=== PATIENT | male | born 1995 | race Caucasian/White ===

== ENCOUNTER 2022-10-13 21:06 | Emergency (ER) | payer OTHER, SELFPAY ==
[2022-10-13 21:16] VITALS: BP 138/74; PULSE 80; RESP 14; TEMP 36.9; O2SAT 96; BMI 24.9
--- NOTE | 2022-10-13 21:25 | ED_ITS ---
HPI - General Adult General Chief complaint: Wound/Laceration Stated complaint: BEE STING ON LIP Time Seen by Provider: 10/13/22 21:25 History of Present Illness HPI narrative: Presents to emergency department complaining of a bee sting. Patient states he was drinking some alcoholic beverage and immediately stung him to his left upper lip. He noticed a little bit of swelling to his lip that wasn't to make sure that he was fine. Incident happened 45 minutes prior to arrival. He states that by bees in the past and never had an ALLERGIC reaction. Cannot take anything at home. He denies any rashes, he denies any wheezing. He denies any tongue swelling, difficulty swallowing, or drooling. He denies any chest pain, shortness of breath. Related Data Allergies Allergy/AdvReac Type Severity Reaction Status Date / Time No Known Drug Allergies Allergy Verified 10/13/22 21:20 Review of Systems ROS Status of ROS 10 or more systems reviewed and unremarkable except as noted in history and below [facility] Social History Smoking status: Current every day smoker Exam Narrative Exam Narrative: Nurses notes and vital signs reviewed and patient is not hypoxic. General: Nontoxic, Well-appearing and in no apparent distress. Skin: Warm, dry, no pallor noted. No Rash Head: Normocephalic, atraumatic. Neck: Supple, non-tender. Eye: Pupils are equal, round and EOMI. No scleral icterus. Ears, Nose, Mouth, and Throat: no posterior oropharynx erythema or nasal mucosal hypertrophy, uvula is mid-line Oral mucosa is moist, Minimal left upper lip edema. No intraoral edema. No tongue elevation Cardiovascular: Regular Rate and Rhythm without murmur, gallop or rub. Respiratory: No accessory muscle use or respiratory distress. Lungs are clear to auscultation, no wheezing, rales or rhonchi Chest Wall: no tenderness Back: No midline thoracic or lumbar vertebral tenderness. No CVA tenderness Musculoskeletal: normal ROM, no calf or popliteal tenderness, no lower extremity edema/swelling GI: Abdomen is soft, non-distended. Normal bowel sounds. No masses appreciated. No tenderness to palpation. No rebound, guarding, or rigidity noted. Neurological: A&O x4. No cranial nerve dysfunction observed. No truncal ataxia. Moves all extremities. Sensation intact. Psychiatric: Cooperative and interactive. Normal mood and affect. Constitutional Vital Signs, click to edit/add: Last Vital Signs Temp 98.5 F 10/13/22 21:16 Pulse 68 10/13/22 22:32 Resp 16 10/13/22 22:32 BP 138/74 10/13/22 21:16 Pulse Ox 98 10/13/22 22:32 O2 Del Method Room Air 10/13/22 22:32 Course Vital Signs Vital signs: Vital Signs Temperature 98.5 F 10/13/22 21:16 Pulse Rate 80 10/13/22 21:16 Respiratory Rate 14 10/13/22 21:16 Blood Pressure 138/74 10/13/22 21:16 Pulse Oximetry 96 10/13/22 21:16 Oxygen Delivery Method Room Air 10/13/22 21:16 Temperature 98.5 F 10/13/22 21:16 Pulse Rate 68 10/13/22 22:32 Respiratory Rate 16 10/13/22 22:32 Blood Pressure 138/74 10/13/22 21:16 Pulse Oximetry 98 10/13/22 22:32 Oxygen Delivery Method Room Air 10/13/22 22:32 Medical Decision Making MDM Narrative Medical decision making narrative: Patient has no known history of ALLERGIES to bees. He is monitored until 10:36 PM without any problems. There were no other signs or symptoms of anaphylactics. Patient was given 50 g of Benadryl by mouth. Patient stable for outpatient follow-up and treatment. At this time the patient is without objective evidence of an acute process requiring hospitalization or inpatient management. The patient has remained hemodynamically stable. No additional indication for emergent studies at this time. I answered all questions. Discussed discharge instructions including standard anticipatory guidance and what should prompt a return to the emergency department, including if they get worse are not getting better or develops any new or concerning symptoms. I've given them specific time frame in which to follow-up, and who to follow-up with. The patient demonstrates understanding. Patient is nontoxic and stable for discharge with outpatient follow-up. This note was created with the assistance of a speech recognition program. Although the intention is to generate documents that actually reflects the content of the visit, no guarantees can be provided that every mistake has been identified and corrected by editing. Discharge Plan Discharge Chief Complaint: Wound/Laceration Clinical Impression: Bee sting Patient Disposition: Home, Self-Care Time of Disposition Decision: 22:19 Condition: Good Mode of Transportation: Private Vehicle Instructions: Insect Bite or Sting (ED) Stand Alone Forms: Portal Instructions Referrals: CARLOS EDUARDO MCQUEEN APRN [Physician] - 1 week Discharge Date/Time: 10/13/22 22:34
--- NOTE | 2022-10-13 21:25 | PC.NURSE ---
patient states approx 45mins ago he was sitting outside drinking and took a drink and it had a bee in it. the beed stung the inside of his upper lip to left side. patient states he is concerned because his lip is swollen. denies any difficulty breathing, shortness of breath, nausea, vomiting. able to clear secretions and speak without issue. no difficulty speaking. no tongue or throat swelling. patient reports he has been stung by bees in the past and has never experienced anaphylaxis or complications related to sting.
[2022-10-13] MEDS: DIPHENHYDRAMINE HCL 25 MG CAPSULE 50 MG PO (21:35)
[2022-10-13 21:48] VITALS: PULSE 78; RESP 16; O2SAT 97
[2022-10-13 22:16] VITALS: PULSE 69; RESP 16; O2SAT 96
[2022-10-13 22:32] VITALS: PULSE 68; RESP 16; O2SAT 98
== END 2022-10-13 22:34 | disposition home or self-care (01) ==
PROVIDERS: Emergency Provider Emergency Medicine
DX: T63.441A Toxic effect of venom of bees, accidental (unintentional), initial encounter (principal); F17.210 Nicotine dependence, cigarettes, uncomplicated
CPT/HCPCS: 99282

== ENCOUNTER 2023-01-19 13:10 | Emergency (ER) | payer SELFPAY ==
[2023-01-19 13:16] VITALS: BP 146/91; PULSE 83; RESP 18; TEMP 36.3; O2SAT 98; BMI 25.8
--- NOTE | 2023-01-19 13:39 | ED_ITS ---
HPI - Nausea/Vomiting/Diarrhea General Chief complaint: Nausea/Vomiting/Diarrhea Stated complaint: SHORTNESS OF BREATH Time Seen by Provider: 01/19/23 13:19 Source: patient Mode of arrival: walk-in History of Present Illness HPI Narrative: patient's here for evaluation of nausea and vomiting. He says yesterday he enjoyed a large Thanksgiving meal with his roommates. He checked with him today and none of them are sick. He had a traditional meal yesterday but he had more beer than usual. He had been drinking on a regular basis but is back to off recently but then again yesterday he drank at least more than six beers. He has no history of hepatitis/pancreatitis or ulcers. He has not had any diarrhea. Has not had a fever. No previous gastrointestinal problems these aware of. Is not vomiting up any blood. He is otherwise healthy and not on any medications. Denies any travel history. He's not been on any antibiotics. They were not scheduled to work today. Related Data Allergies Allergy/AdvReac Type Severity Reaction Status Date / Time No Known Drug Allergies Allergy Verified 10/13/22 21:20 [facility] OF [facility] Social History Smoking status: Current every day smoker Exam Narrative Exam Narrative: awake alert oriented ?3 pleasant and appears mildly uncomfortable. Skin is warm and dry mucous membranes are moist and pink. There is no evidence of pallor or scleral icterus on the eye examination. Abdominal examination is good bowel sounds. There is no peritoneal findings, no guarding rebound rigidity or discomfort to palpation. There is no abdominal masses. At the upper end of his abdominal area he has normal small diastases recti. Constitutional Vital Signs, click to edit/add: Last Vital Signs Temp 97.4 F L 01/19/23 13:16 Pulse 83 01/19/23 13:16 Resp 18 01/19/23 13:16 BP 146/91 H 01/19/23 13:16 Pulse Ox 98 01/19/23 13:16 O2 Del Method Room Air 01/19/23 13:16 Course Vital Signs Vital signs: Vital Signs Temperature 97.4 F L 01/19/23 13:16 Pulse Rate 83 01/19/23 13:16 Respiratory Rate 18 01/19/23 13:16 Blood Pressure 146/91 H 01/19/23 13:16 Pulse Oximetry 98 01/19/23 13:16 Oxygen Delivery Method Room Air 01/19/23 13:16 Temperature 97.4 F L 01/19/23 13:16 Pulse Rate 83 01/19/23 13:16 Respiratory Rate 18 01/19/23 13:16 Blood Pressure 146/91 H 01/19/23 13:16 Pulse Oximetry 98 01/19/23 13:16 Oxygen Delivery Method Room Air 01/19/23 13:16 MDM - Nausea/Vomiting/Diarrhea MDM Narrative Medical decision making narrative: this patient presents with limited clinical problem of vomiting. His white blood cell count was elevated. His abdominal exam was benign but in lieu of the blood, I believe is prudent to rule out any type of surgical problems. CT of the abdomen was done and showed likely transient small bowel intussuscept ion but there was no bowel obstruction and no gross findings of bowel inflammation. The patient was greatly improved and has no more vomiting or discomfort. I spoke with the on-call surgeon, Dr. morse. He does not feel that the patient needs surgical evaluation at this time. In lieu of the patient's using marijuana he should at least entertain the diagnosis of cyclic vomiting. We will send him home on antiemetic, clear fluids is return for a worsening Lab Data Labs: Lab Results 01/19/23 Range/Units 13:25 WBC 25.4 H (4.0-11.0) 10^3/uL RBC 4.97 (4.70-6.10) 10^6/uL Hgb 15.4 (14.0-18.0) g/dL Hct 44.4 (42.0-54.0) % MCV 89.3 (80.0-94.0) fL MCH 31.0 (25.9-34.0) pg MCHC 34.7 (29.9-35.2) g/dL RDW 12.9 (11.0-15.0) % Plt Count 301 (150-450) 10^3/uL MPV 9.7 (9.5-13.5) fL Seg Neuts % (Manual) 85.0 Lymphocytes % (Manual) 3.0 L (20.5-60.0) % Monocytes % (Manual) 12.0 (1.7-12.0) % Eosinophils % (Manual) 0.0 L (0.9-7.0) % Basophils % (Manual) 0.0 L (0.2-2.0) % Neutrophils # (Manual) 21.59 H (1.4-6.5) 10^3/uL Lymphocytes # (Manual) 0.76 L (1.20-3.80) 10^3/uL Monocytes # (Manual) 3.04 H (0.30-0.80) 10^3/uL Eosinophils # (Manual) 0.00 (0.00-0.70) 10^3/uL Basophils # (Manual) 0.00 (0.00-0.10) 10^3/uL Sodium 140 (136-145) mmol/L Potassium 3.7 (3.5-5.1) mmol/L Chloride 100 (98-107) mmol/L Carbon Dioxide 29.4 (21.0-32.0) mmol/L Anion Gap 14.3 BUN 20.0 H (7.0-18.0) mg/dL Creatinine 1.24 (0.70-1.30) mg/dL Est GFR ( Amer) >60 (>=60) Est GFR (Non-Af Amer) >60 (>=60) BUN/Creatinine Ratio 16.1 Glucose 155 H (74-106) mg/dL Calcium 10.2 H (8.5-10.1) mg/dL Total Bilirubin 0.7 (0.2-1.0) mg/dL AST 26 (15-37) U/L ALT 37 (16-63) U/L Alkaline Phosphatase 110 (46-116) U/L Total Protein 8.8 H (6.4-8.2) g/dL Albumin 4.8 (3.4-5.0) g/dL Globulin 4.0 g/dL Albumin/Globulin Ratio 1.2 Lipase 11.0 L (16.0-77.0) U/L Discharge Plan Discharge Chief Complaint: Nausea/Vomiting/Diarrhea Clinical Impression: Increased nausea and vomiting Patient Disposition: Home, Self-Care Time of Disposition Decision: 16:25 Additional Instructions: clear fluids only small but frequent sips for twenty-four hours, then slowly advance diet. Zofran/return to Emergency Room if worsening Stand Alone Forms: Portal Instructions Referrals: Physician,Non-Staff, MD [Primary Care Provider] - 1 week
[2023-01-19] MEDS: PROMETHAZINE HCL 25 MG/ML VIAL 12.5 MG IV (13:49)
[2023-01-19] MEDS: ONDANSETRON PF 4 MG/2 ML VIAL IV (13:49)
[2023-01-19] MEDS: 0.9 % SODIUM CHLORIDE 1,000 ML 999 ML IV (13:49)
[2023-01-19 13:52] LABS: Hematocrit 44.4 % (42.0-54.0); Hemoglobin 15.4 g/dL (14.0-18.0); Mean Corpuscular HGB Conc 34.7 g/dL (29.9-35.2); Mean Corpuscular Volume 89.3 fL (80.0-94.0); Mean Platelet Volume 9.7 fL (9.5-13.5); Platelet Count 301 10^3/uL (150-450); Red Blood Count 4.97 10^6/uL (4.70-6.10); Red Cell Distribution Width 12.9 % (11.0-15.0); White Blood Count 25.4 10^3/uL (4.0-11.0)
[2023-01-19 14:01] LABS: Alanine Aminotransferase 37 U/L (16-63); Albumin Globulin Ratio 1.2; Albumin Level 4.8 g/dL (3.4-5.0); Alkaline Phosphatase 110 U/L (46-116); Anion Gap 14.3; Aspartate Amino Transferase 26 U/L (15-37); BUN Creatinine Ratio 16.1; Bilirubin Total 0.7 mg/dL (0.2-1.0); Calcium 10.2 mg/dL (8.5-10.1); Carbon Dioxide 29.4 mmol/L (21.0-32.0); Chloride 100 mmol/L (98-107); Estimated GFR (African America >60 (>=60); Estimated GFR (Non-African Ame >60 (>=60); Glucose 155 mg/dL (74-106); Potassium 3.7 mmol/L (3.5-5.1); Sodium 140 mmol/L (136-145); Total Protein 8.8 g/dL (6.4-8.2)
[2023-01-19 14:11] LABS: Lymphocytes Absolute Manual 0.76 10^3/uL (1.20-3.80); Monocytes Absolute Manual 3.04 10^3/uL (0.30-0.80); Segmented Neut Absolute Manual 21.59 10^3/uL (1.4-6.5)
--- NOTE | 2023-01-19 14:15 | CT_ITS ---
The [address] [address] Patient Name: JUAN RAMOS MRN: [id number] date: 1995 Sex: M Assigned Patient Location: ER Current Patient Location: Accession/Order Number: [id number] Exam Date: 01/19/2023 14:30 Report Date: 01/19/2023 15:09 At the request of: KEL KNUTSON Procedure: CT abdomen pelvis w con CT abdomen pelvis w con, 01/19/2023 2:30 PM EST INDICATION: Abdominal pain, nausea and vomiting with dyspnea since this morning. COMPARISON: No prior CT scan of the abdomen and pelvis available for comparison at the time of this dictation. TECHNIQUE: Axial images of the abdomen and pelvis were obtained after the administration of IV contrast. Multiplanar reformatted images were generated and reviewed as needed. Dose reduction techniques were achieved by using automated exposure control and/or adjustment of mA and/or kV according to patient size and/or use of iterative reconstruction technique. FINDINGS: Images degraded by motion artifact. No consolidation or effusion. The liver, gallbladder, pancreas, spleen and adrenals are unremarkable. Symmetric nephrograms without evidence of obstruction. Punctate calculi base of the urinary bladder. No aortic aneurysm. No bowel obstruction or acute focal inflammation. Small bowel intussusception within the left upper abdomen. No pneumatosis, pneumoperitoneum or ascites. No mesenteric or retroperitoneal lymphadenopathy. No acute fracture or dislocation. CT/CT abdomen pelvis w con IMPRESSION: 1. Small bowel intussusception within the left upper abdomen, likely transient. No bowel obstruction. No gross findings of bowel inflammation (scan is limited secondary to motion artifact) 2. Punctate calculi base the urinary bladder. No gross findings of urinary bladder cystitis Electronically authenticated by: SARAH WALTER Date: 01/19/2023 15:09
[2023-01-19 14:46] VITALS: BP 124/67; PULSE 86; RESP 18; O2SAT 97
== END 2023-01-19 16:37 | disposition home or self-care (01) ==
PROVIDERS: Emergency Provider Emergency Medicine Emergency Medical Services
DX: R11.2 Nausea with vomiting, unspecified (principal); F17.210 Nicotine dependence, cigarettes, uncomplicated
CPT/HCPCS: 36415; 74177; 80053; 83690; 85027; 96361; 96374; 96375; 99285; Q9967

== ENCOUNTER 2023-12-26 07:29 | Emergency (ER) | payer SELFPAY ==
[2023-12-26 07:35] VITALS: BP 139/83
[2023-12-26 07:36] VITALS: BP 139/83; PULSE 76; TEMP 36.4; O2SAT 96; O2SAT 97; BMI 25.8
[2023-12-26 08:00] VITALS: BP 117/75; PULSE 74; O2SAT 97
--- OUTSIDE RECORDS SUMMARY | 2023-12-26 08:08 | XMS_ITS | CCD ---
Author Organization [facility] Care Team Providers Care Pin Drafter Name Role Phone PAY, DR PEREZ Attending Unavailable PAY, DR PEREZ Consulting Unavailable PAY, DR PEREZ Admitting Unavailable REQUEST, DR MCFADDEN LISTED Primary Care Unavaila willa Ney Cha Unavailable Ynes Stovall Unavailable Allergies Allergy Classification Reported Allergen(s) Allergy Type Date of Onset Reaction(s) Facility (1 source) Vancomycin Drug Allergy The [facility] [place] Repository Medications Current Medications Medication Drug Class(es) Dates Sig (Normalized) Sig (Original) cephalexin 500 mg oral tablet (2 sources) Cephalosporin Antibacterial Start: 3 take 1 tablet by mouth every twelve hours Cephalexin 500 MG 1 tablet Orally twice a day for 10 days Nov, Active methylPREDNISolone 4 mg oral tablet (2 sources) Corticosteroid Start: 3 methylPREDNISolone 4 MG as directed Orally take as directed for 6 days Nov, Active omeprazole 20 mg delayed release oral tablet (2 sources) Proton Pump Inhibitor Start: 3 take 1 tablet by mouth once daily Omeprazole 20 MG 1 tablet 30 minutes before morning meal Orally Once a day for 30 days June, Active Robaxin-750 750 MG (2 sources) Start: 3 take 1 tablet by mouth at bedtime Robaxin-750 750 MG 1 -2 tablet(s) Orally at bedtime for 10 days Nov, Active Completed/Discontinued Medications Medication Drug Class(es) Dates Sig (Normalized) Sig (Original) cefTRIAXone (2 sources) Cephalosporin Antibacterial Start: 01-26-2017 Rocephin 500 mg Jan, 500 mg Problems Active Problems Problem Classification Problem Date Documented Date Episodic/Chronic Esophageal disorders (2 sources) Gastroesophageal reflux disease without esophagitis; Translations: [Gastro-esophageal reflux disease without esophagitis] Chronic Lymphadenitis (1 source) Acute lymphadenitis, unspecified Episodic Other upper respiratory infections (6 sources) Acute pharyngitis, unspecified; Translations: [Acute upper respiratory infection, unspecified] Onset: 08-26-2021 Episodic Sprains and strains (1 source) Strain of muscle, fascia and tendon of lower back, initial encounter Episodic Substance-related disorders (1 source) Nicotine dependence, cigarettes, uncomplicated; Translations: [NICOTINE DEPEND CIGARETTES UNCOMP] Onset: 08-30-2021 Chronic Past or Other Problems Problem Classification Problem Date Documented Da te Episodic/Chronic Unclassified (1 source) Suspected COVID-19 virus infection Z20.822 Results Test Name Value Interpretation Reference Range Facil ity COVID/FLU RT-PCRon SARS-CoV-2 (COVID-19) RNA DANIELLA+probe Ql (Unsp spec) Negative [facility] Other COVID/FLU RT-PCR Negative [employer] Other Quick Strepon 12-14-2022 S. pyogenes Org specific cx Ql (Throat) Negative [facility] Other Quick Strep [facility] Other GROUP A STREP CULTUREon S. pyogenes Ag Ql (Unsp spec) Culture Observations: NEGATIVE FOR GROUP A STREPTOCOCCUS. Normal [facility] [place] Comment on above: Performed By: #### G RASTCX, SSCRN #### [facility] [place] [facility] [address] [address] [address] Reyna Allen STREPT SCREENon 08-26-2021 STREP SCREEN A Negative Normal NEGATIVE [facility] Comment on above: Performed By: #### G RASTCX, SSCRN #### [facility] [place] [facility] [address] [place], [place] [address] Dr. Reyna Allen Vital Signs Date Time Vital Sign Value Performing Clinician Facility 12-14-2022 09:30-0400 Body height 176.53 cm Ney Cha Other [facility] Other 12-14-2022 09:30-0400 Body mass index (BMI) [Ratio] 26.93 kg/m2 Ney Cha Other [facility] Other 12-14-2022 09:30-0400 Body temperature 101 [degF] Ney Cha Other [facility] Other 12-14-2022 09:30-0400 Body weight 83.92 kg Ney Cha Other [facility] Other 12-14-2022 09:30-0400 Diastolic blood pressure 73 mm[Hg] Ney Cha Other [facility] Other 12-14-2022 09:30-0400 Respiratory rate 18 /min Ney Cha Other [facility] Other 12-14-2022 09:30-0400 SaO2% (BldA) [Mass fraction] 98 % Ney Cha Other [facility] Other 12-14-2022 09:30-0400 Systolic blood pressure 129 mm[Hg] Ney Cha Other [facility] Other Encounters Encounter Date Encounter Type Care Provider Facility Start: 12-14-2022 End: 12-14-2022 ambulatory Ney Cha Other [facility] Other Start: 12-14-2022 Office outpatient vi sit 15 minutes Ney Cha [facility] Start: 12-14-2022 Telephone encounter Ynes Stovall [facility] Start: 08-26-2021 End: 08-26-[address] PEREZ PAY Facility: Payers Date Payer Category Payer Unknown [id number] 1961 Unknown [id number] 1961 Unknown [id number] Unknown [id number] Social History Date Type Detail Facility Unknown if ever smoked [facility] Other Sex Assigned At Sex Assigned At Bir th [facility] Other Evaluation note 12-14-2022 Note Date & Type Note Facility 12-14-2022 Evaluation note Encounter Date Diagnosis Assessment Notes Nov, Sore throat (ICD-10 - J02.9) Nov, Viral URI (ICD-10 - J06.9) History and exam consistent with a primary viral infection. however, there is evidence of a secondary bacterial lymphadenitis . Thus, will prescribe cephalexin even though strep is negative. He does complain of mild back back pain which is consistent with strain of lower back. Will prescribe medrol dose pack and robaxin. Educated that if he develops urinary or bowel incontinence, numbness of the perianal region, or numbness/weak ness in her legs. Nov, Acute lymphadenitis (ICD-10 - L04.9) Nov, Strain of muscle, fascia and tendon of lower back, initial encounter (ICD-10 - S39.012A) Important to use good body ergonomics when working. Stretch twice a day. Follow up with pcp as needed. Nov, Suspected COVID-19 virus infection (ICD-10 - Z20.822) [facility] Other Evaluation note Note Date & Type Note Facility Evaluation note No Information [employer] Other Summary Purpose Family History No Family History Records Found Advance Directives No Advanced Directives Records Found Additional Source Comments (unrecognized sect ion and content) No Status Records Found INFORMATION SOURCE (unrecogn ized section and content) DATE CREATED AUTHOR 10/20/2021 [employer] REASON FOR VISIT (unrecogniz ed section and content) sore throat, back pain down middleNo Information FOR RECORDS PERTAINING TO PATIENTS WHO ARE OR HAVE BEEN ENROLLED IN A CHEMICAL DEPENDENCY/SUBSTANCEABUSE PROGRAM, SOME INFORMATION MAY BE OMITTED. This clinical summary was aggregated from multiple sources. Caution should be exercised in using it in the provision of clinical care. This summary normalizes information from multiple sources, and as a consequence, information in this document may materially change the coding, format and clinical context of patient data. In addition, data may be omitted in some cases. CLINICAL DECISIONS SHOULD BE BASED ON THE PRIMARY CLINICAL RECORDS. [facility]. provides no warranty or guarantee of the accuracy or completeness of information in this document.
--- NOTE | 2023-12-26 08:14 | XR_ITS ---
The [address] [address] Patient Name: JUAN RAMOS MRN: [id number] date: 1995 Sex: M Assigned Patient Location: ED.MAIN Current Patient Location: ED.MAIN Accession/Order Number: [id number] Exam Date: 12/26/2023 08:20 Report Date: 12/26/2023 08:50 At the request of: KEL KNUTSON Procedure: XR chest 1V EXAMINATION: XR chest 1V HISTORY: Chest pain COMPARISON: No relevant comparison available. FINDINGS: LUNGS: No significant pulmonary parenchymal abnormalities. VASCULATURE: No increased pulmonary vasculature. PLEURA: No pneumothorax, effusion, or pleural thickening. CARDIAC: No cardiomegaly or cardiac silhouette abnormality. MEDIASTINUM: No visible mass or adenopathy. BONES: No fracture or visible bone lesion. OTHER: Negative. XR/XR chest 1V IMPRESSION: 1. No acute cardiopulmonary process. Electronically authenticated by: JULIAN GUZMAN Date: 12/26/2023 08:50
--- NOTE | 2023-12-26 08:14 | ECG_ITS ---
The [facility] Test Date: 2023-12-26 Pat Name: JUAN RAMOS Department: Room: - Gender: Male Protection Mgr: : 1995 Requested By: [id number] Order Number: [id number] Reading MD: TIM MORA Measurements Intervals [place] Rate: 73 P: 90 OR: 166 QRS: 101 QRSD: 98 T: 78 QT: 396 QTc: 422 Interpretive Statements 1100 Sinus rhythm 2420 RSR (QR) in lead V1/V2, consistent with right ventricular conduction delay 7100 Abnormal right axis deviation 9130 borderline ECG Compared to ECG 09/24/2020 18:43:58 No significant changes Electronically Signed On 12-26-2023 23:24:14 EDT by TIM MORA
[2023-12-26 08:19] LABS: Basophils Percent Auto 0.5 % (0.2-2.0); Eosinophils Absolute Auto 0.2 10^3/uL (0.0-0.7); Hematocrit 41.1 % (42.0-54.0); Hemoglobin 14.1 g/dL (14.0-18.0); Immature Granulocytes Abs Auto 0.01 10^3/uL (0.00-0.03); Immature Granulocytes Pct Auto 0.1 % (0.0-0.5); Lymphocytes Absolute Auto 3.2 10^3/uL (1.2-3.8); Mean Corpuscular HGB Conc 34.3 g/dL (29.9-35.2); Mean Corpuscular Hemoglobin 30.9 pg (25.9-34.0); Mean Corpuscular Volume 90.1 fL (80.0-94.0); Mean Platelet Volume 9.7 fL (9.5-13.5); Monocytes Absolute Auto 0.6 10^3/uL (0.3-0.8); Monocytes Percent Auto 8.4 % (1.7-12.0); Neutrophils Absolute Auto 3.3 10^3/uL (1.4-6.5); Platelet Count 228 10^3/uL (150-450); Red Blood Count 4.56 10^6/uL (4.70-6.10); Red Cell Distribution Width 12.8 % (11.0-15.0); White Blood Count 7.4 10^3/uL (4.0-11.0)
[2023-12-26 08:30] VITALS: BP 124/77; PULSE 71; O2SAT 97
[2023-12-26 08:34] LABS: D Dimer <0.19 mg/L FEU (<=0.59)
[2023-12-26 08:36] LABS: Anion Gap 14.2; BUN Creatinine Ratio 18.2; Calcium 8.4 mg/dL (8.5-10.1); Carbon Dioxide 28.7 mmol/L (21.0-32.0); Chloride 104 mmol/L (98-107); Estimated GFR (African America >60 (>=60 mL/min/1.73m^2); Estimated GFR (Non-African Ame >60 (>=60 mL/min/1.73m^2); Glucose 98 mg/dL (74-106); Potassium 3.9 mmol/L (3.5-5.1); Sodium 143 mmol/L (136-145); Troponin I High Sensitivity <4.0 pg/mL (4.0-76.1)
--- NOTE | 2023-12-26 08:38 | ED_ITS ---
HPI - Chest Pain General Chief Complaint: Chest Pain Stated Complaint: SHORTNESS OF BREATH/ CHEST PAIN Time Seen by Provider: 12/26/23 08:01 Source: patient Mode of arrival: walk-in Limitations: no limitations History of Present Illness HPI narrative: This patient is here complaining of chest discomfort. He had an episode earlier this morning for going to work. It lasted approximately 5 minutes. He has been having these episodes for several weeks if not several months they usually occur at work while he is moving about. They do not wake him from his sleep. He has not had previous cardiovascular disease. He does not have a primary care doctor. He does not have a family history of premature coronary or medical problems that he is aware of. He does not have any history of hypertension diabetes or elevation of his cholesterol. He has not had any nausea or vomiting with these episodes. They last approximately 5 minutes and they are over his left precordial area. Sometimes it radiates to his neck. They are all self terminating. He has not had any palpitations or syncopal episodes. He does use tobacco products and occasional marijuana. He occasionally describes a burning and indigestion type symptoms like he had this morning. Related Data Home Medications ?Medication ?Instructions ?Recorded ?Confirmed No Known Home Medications 12/26/23 12/26/23 Allergies Allergy/AdvReac Type Severity Reaction Status Date / Time No Known Drug Allergies Allergy Verified 12/26/23 07:35 [facility] Social History Smoking status: Current every day smoker Little interest or pleasure in doing things: not at all Feeling down, depressed, or hopeless: not at all Exam Narrative Exam Narrative: Patient is awake alert pleasant good historian seems very physically fit. Is not having any symptoms at this time. Event occurred just over 2 and half hours ago. There is no obvious thyromegaly. Trachea is midline. There is no carotid bruits on either side. His lungs are completely clear with no wheeze rales or rhonchi. Heart sounds are normal with no clicks rubs gallops or murmurs. Chest wall did not seem to be tender. Extremities show no peripheral edema erythema swelling or tenderness to palpation. Pulses of the extremities are strong. Eye examination showed normal findings with no xanthelasma Constitutional Vital Signs, click to edit/add: Last Vital Signs Temp 97.6 F 12/26/23 07:36 Pulse 71 12/26/23 08:30 Resp 7 L 12/26/23 08:30 BP 124/77 12/26/23 08:30 Pulse Ox 97 12/26/23 08:30 O2 Del Method Room Air 12/26/23 07:36 Course Vital Signs Vital signs: Vital Signs Blood Pressure 139/83 12/26/23 07:35 Temperature 97.6 F 12/26/23 07:36 Pulse Rate 71 12/26/23 08:30 Respiratory Rate 7 L 12/26/23 08:30 Blood Pressure 124/77 12/26/23 08:30 Pulse Oximetry 97 12/26/23 08:30 Oxygen Delivery Method Room Air 12/26/23 07:36 MDM - Chest Pain MDM Narrative Medical decision making narrative: This patient has no cardiovascular risk factors. No family history. We do not know his lipid profile but there is seems to be no genetic disorders per his history. He is going get healthcare insurance and we have strongly advocated that he find a family doctor. He should stop smoking tobacco products. I am go ing to provide a prescription for Prilosec. I believe he has extremely low cardiovascular risk at this time Lab Data Labs: Lab Results 12/26/23 Range/Units 07:45 WBC 7.4 (4.0-11.0) 10^3/uL RBC 4.56 L (4.70-6.10) 10^6/uL Hgb 14.1 (14.0-18.0) g/dL Hct 41.1 L (42.0-54.0) % MCV 90.1 (80.0-94.0) fL MCH 30.9 (25.9-34.0) pg MCHC 34.3 (29.9-35.2) g/dL RDW 12.8 (11.0-15.0) % Plt Count 228 (150-450) 10^3/uL MPV 9.7 (9.5-13.5) fL Neut % (Auto) 45.0 (43.0-75.0) % Lymph % (Auto) 43.0 (20.5-60.0) % [place] % (Auto) 8.4 (1.7-12.0) % Eos % (Auto) 3.0 (0.9-7.0) % Baso % (Auto) 0.5 (0.2-2.0) % Neut # (Auto) 3.3 (1.4-6.5) 10^3/uL Lymph # (Auto) 3.2 (1.2-3.8) 10^3/uL [place] # (Auto) 0.6 (0.3-0.8) 10^3/uL Eos # (Auto) 0.2 (0.0-0.7) 10^3/uL Baso # (Auto) 0.0 (0.0-0.1) 10^3/uL Abs Immat Gran (auto) 0.01 (0.00-0.03) 10^3/uL Imm/Tot Granulo (auto) 0.1 (0.0-0.5) % D-Dimer <0.19 (<=0.59) mg/L FEU Sodium 143 (136-145) mmol/L Potassium 3.9 (3.5-5.1) mmol/L Chloride 104 (98-107) mmol/L Carbon Dioxide 28.7 (21.0-32.0) mmol/L Anion Gap 14.2 BUN 20.0 H (7.0-18.0) mg/dL Creatinine 1.10 (0.70-1.30) mg/dL Est GFR ( Amer) >60 (>=60 mL/min/1.73m^2) Est GFR (Non-Af Amer) >60 (>=60 mL/min/1.73m^2) BUN/Creatinine Ratio 18.2 Glucose 98 (74-106) mg/dL Calcium 8.4 L (8.5-10.1) mg/dL Troponin I High Sens <4.0 L (4.0-76.1) pg/mL Heart Score History: Slightly/Non-Suspicious ECG: Normal Age: <45 years Risk Factors: No Risk Factors Troponin: <Normal Limit Total Heart Score Recommendations & Risks:: 0 Discharge Plan Discharge Chief Complaint: Chest Pain Clinical Impression: Chest pain Patient Disposition: Home, Self-Care Time of Disposition Decision: 09:01 Prescriptions / Home Meds: No Action No Known Home Medications Print Language: Trinidadian Additional Instructions: May try Tums on an as-needed basis or daily Prilosec. Follow-up with primary care doctor. Tobacco cessation. Referrals: Physician,Non-Staff, MD [Primary Care Provider] - 1 week
[2023-12-26 09:00] VITALS: BP 119/66; PULSE 73; O2SAT 97
== END 2023-12-26 09:20 | disposition home or self-care (01) ==
PROVIDERS: Emergency Provider Emergency Medicine Emergency Medical Services
DX: R07.9 Chest pain, unspecified (principal); F17.200 Nicotine dependence, unspecified, uncomplicated
CPT/HCPCS: 36415; 71045; 80048; 84484; 85025; 85378; 93005; 99285